=== PATIENT | female | born 1960 | race Caucasian/White ===

== ENCOUNTER → 2017-01-11 | Outpatient (CLI) | payer OTHER ==
[2017-01-11 14:38] VITALS: BP 136/88; PULSE 76; RESP 16; TEMP 97.9; BMI 46.6
--- NOTE | 2017-02-09 09:46 | P.HPBAR ---
Bariatric H&P - History & Physicial H&P Date: 01/11/17 History & Physicial: Visit/CC: band adj Patient initial contact: Initial weight: 167.376 kg Initial weight in pounds: 369.00 Height: 5 ft 5 in Initial BMI: 61.4 Last weight: Current weight: 127.091 kg Current weight in pounds: 280.00 Current BMI: 46.6 [place] body weight (based on NIH guidelines): 56.699 kg Excess body weight loss: 36.4% The patient is a 56 year-old F who presents for Bariatric Assessment. Patient presents for adjustment of her LAP-BAND. She's not been seen several years. The patient states she is hungry and has gained weight. Past Medical History History of Any Multi-Drug Resistant Organisms: None Reported Smoking Status: Former smoker Surgical - Exam Vital Signs Temp Pulse Resp BP 97.9 F 76 16 136/88 01/11/17 14:35 01/11/17 14:35 01/11/17 14:35 01/11/17 14:35 - General well developed, no distress - Eyes PERRL - ENT normal pinna - Neck no masses - Respiratory normal expansion - Cardiovascular Rhythm: regular - Abdomen Abdomen: soft, non tender Bariatric Assessment & Plan Plan: A shunt had her Fatimah adjusted. 0.7 mL was added to her band. She currently has 3 mL in the band. She was able to water without difficulty. Bariatric Checklist Checklist: Plan: Checklist: EGD: 1. Hiatal hernia: 2. H. Pylori: HgbA1c: Vitamin D: Smoking: Former smoker Primary care physician referral: Psychiatry clearance: Cardiology clearance: Sleep study: Diet journal: VTE risk score: VTE risk level: Rehab needs at discharge:
== END | disposition home or self-care (01) ==
LOC: BARWHC3 14:05
PROVIDERS: ATTEND Surgery
DX: Z48.815 Encounter for surgical aftercare following surgery on the digestive system (principal); Z98.84 Bariatric surgery status; Z87.891 Personal history of nicotine dependence
CPT/HCPCS: 99212

== ENCOUNTER → 2021-02-24 | Outpatient (CLI) | payer OTHER ==
[2021-02-24 14:45] VITALS: BP 150/84; PULSE 82; RESP 18; TEMP 97.8; BMI 44.6
--- NOTE | 2021-03-04 12:33 | P.HPBAR ---
Bariatric H&P - History & Physicial H&P Date: 02/24/21 History & Physicial: Visit/CC: lap band follow up Patient initial contact: Initial weight: 167.376 kg Initial weight in pounds: 369.00 Height: 5 ft 5 in Initial BMI: 61.4 Last weight: Current weight: 121.517 kg Current weight in pounds: 267.90 Current BMI: 44.6 [place] body weight (based on NIH guidelines): 56.699 kg Excess body weight loss: 41.4% The patient is a 60 year-old F who presents for Bariatric Assessment. Patient resents today for lab band follow. She's had complaints of epigastric pain and nausea. She also had some dysphagia. Past Medical History Past Medical History: Diabetes Mellitus, GERD/Reflux, Hypertension History of Any Multi-Drug Resistant Organisms: None Reported Past Surgical History: Bariatric Surgery, Tonsillectomy Additional Past Surgical History / Comment(s): PANNI - 2010. lap band - 2002. Past Anesthesia/Blood Transfusion Reactions: No Reported Reaction Past Psychological History: No Psychological Hx Reported Smoking Status: Never smoker Past Alcohol Use History: Occasional Past Drug Use History: None Reported Surgical - Exam Vital Signs Temp Pulse Resp BP 97.8 F 82 18 150/84 02/24/21 14:38 02/24/21 14:38 02/24/21 14:38 02/24/21 14:38 - General well developed, well nourished, no distress - Eyes PERRL - ENT normal pinna - Neck no masses - Respiratory normal expansion - Cardiovascular Rhythm: regular - Abdomen Abdomen: soft, non tender Bariatric Assessment & Plan Plan: Patient LAP-BAND was empty. She had 3 mL remove her band. She also skin for ultrasound and HIDA scan. Bariatric Checklist Checklist: Plan: Checklist: EGD: 1. Hiatal hernia: 2. H. Pylori: HgbA1c: Vitamin D: Smoking: Former smoker Primary care physician referral: PATRICIA Burnham ([place]) Psychiatry clearance: Cardiology clearance: Sleep study: Diet journal: VTE risk score: VTE risk level: Rehab needs at discharge:
== END ==
LOC: BARWHC3 14:15
PROVIDERS: ATTEND Surgery
DX: Z46.51 Encounter for fitting and adjustment of gastric lap band (principal); R11.0 Nausea; R10.13 Epigastric pain; E11.9 Type 2 diabetes mellitus without complications; I10 Essential (primary) hypertension; Z98.84 Bariatric surgery status
CPT/HCPCS: 99212

== ENCOUNTER → 2021-03-27 | Outpatient (CLI) | payer OTHER ==
--- NOTE | 2021-03-27 11:29 | NM ---
EXAMINATION TYPE: NM hepatobiliary w CCK DATE OF EXAM: 03/27/2021 COMPARISON: Gallbladder ultrasound dated 03/27/2021 HISTORY: R10.84 generalized abdominal pain TECHNIQUE: After the intravenous administration of 5.1 mCi Tc 99m Mebrofenin hepatobiliary scintigrap hy is performed. Immediate images post injection. FINDINGS: There is satisfactory initial accumulation of tracer by the liver. The gallbladder is visualized wit hin 12 minutes. The small bowel activity is noted on delayed imaging. At one hour CCK was administe red, patient was injected with 2.45 mcg of Kinevac, and gallbladder ejection fraction is calculated a t 83 %, in the normal range. Therefore there is no scintigraphic evidence of cystic or common bile d uct obstruction to suggest acute cholecystitis or gallbladder dyskinesia. IMPRESSION: Bladder ejection fraction 83% at the upper limit of normal. No evident cystic duct obstru ction. Short findings above.
--- NOTE | 2021-03-27 14:10 | US ---
EXAMINATION TYPE: US gallbladder DATE OF EXAM: 03/27/2021 COMPARISON: NONE CLINICAL HISTORY: R10.84 generalized abdominal pain. EXAM MEASUREMENTS: Liver Length: 19 cm Gallbladder Wall: 0.3 cm CBD: 0.2 cm Right Kidney: 10.6 x 5.2 x 5.7 cm Technical difficult study due to patient size Pancreas: Completely obscured by bowel gas Liver: Diffuse fatty infiltration of the liver. No discrete hepatic mass or intrahepatic biliary dil atation is seen. The liver is partially obscured. Gallbladder: No gallstones, sludge, or pericholecystic fluid. Gallbladder wall measures 2.8 mm, with in normal limits. Evidence for sonographic Jaffe's sign: No CBD: 2.8 mm, within normal limits. Right Kidney: wnl IMPRESSION: 1. Hepatomegaly and hepatic steatosis. The liver is not entirely visualized. The study is limited due to patient's large body habitus. 2. The pancreas is completely obscured by bowel gas. 3. No gallstones, sludge, or pericholecystic fluid. No gallbladder wall thickening. Common duct is wi thin normal limits. 4. No renal calculi or hydronephrosis of the right kidney. 5. No ascites in the right upper abdomen.
== END | disposition home or self-care (01) ==
LOC: RADUSWWP 07:04
PROVIDERS: ATTEND Surgery
DX: K76.0 Fatty (change of) liver, not elsewhere classified (principal); R16.0 Hepatomegaly, not elsewhere classified
CPT/HCPCS: 76705; 78227; A9537

== ENCOUNTER 2021-04-25 07:03 | Day surgery (SDC) | payer OTHER ==
[2021-04-23 11:43] VITALS: BMI 46.5
[~2021-04-25 07:03] MED LIST: LACTATED RINGERS 1,000 ML IV SCH
[2021-04-25 07:43] VITALS: RESP 16; TEMP 97.5
[2021-04-25 07:55] LABS: Glucose,Whole Blood 159 mg/dL (75-99)
[2021-04-25] MEDS ORDERED: LIDOCAINE 1% INJ 10MG/ML (20 ML MDV) ONE (08:19)
[2021-04-25] MEDS ORDERED: PROPOFOL 10 MG/ML 20 ML VIAL IV ONE (08:19)
--- NOTE | 2021-04-25 08:23 | P.GSHP ---
History of Present Illness H&P Date: 04/25/21 Chief Complaint: GERD Is a 60-year-old female with history of GERD. Patient has safer EGD. She appears history of Nuno's her LAP-BAND procedure Past Medical History Past Medical History: Diabetes Mellitus, GERD/Reflux, Hyperlipidemia, Hypertension History of Any Multi-Drug Resistant Organisms: None Reported Past Surgical History: Bariatric Surgery, Tonsillectomy Additional Past Surgical History / Comment(s): PANNI - 2010. lap band - 2002. Past Anesthesia/Blood Transfusion Reactions: No Reported Reaction Smoking Status: Never smoker - Past Family History Mother Family Medical History: No Reported History Medications and Allergies Home Medications Medication Instructions Recorded Confirmed Type Glimepiride [Amaryl] 2 mg PO [id number] 02/24/21 04/25/21 History Lisinopril [Prinivil] 10 mg PO DAILY 02/24/21 04/25/21 History Omeprazole 20 mg PO DAILY 02/24/21 04/25/21 History Rosuvastatin Calcium [Ezallor 20 mg PO DAILY 02/24/21 04/25/21 History Sprinkle] metFORMIN HCL ER [Glucophage Xr] 500 mg PO BID 02/24/21 04/25/21 History Allergies Allergy/AdvReac Type Severity Reaction Status Date / Time No Known Allergies Allergy Verified 04/25/21 07:25 Surgical - Exam Vital Signs Temp Pulse Resp BP Pulse Ox 97.5 F L 79 16 173/76 97 04/25/21 07:32 04/25/21 07:32 04/25/21 07:32 04/25/21 07:32 04/25/21 07:32 - General well developed, well nourished, no distress - Eyes PERRL - ENT normal pinna - Neck no masses - Respiratory normal expansion - Cardiovascular Rhythm: regular - Abdomen Abdomen: soft, non tender Results - Labs Abnormal Lab Results - Last 24 Hours (Table) 04/25/21 Range/Units 07:42 POC Glucose (mg/dL) 159 H (75-99) mg/dL Assessment and Plan Assessment: GERD. We'll perform EGD.
--- NOTE | 2021-04-25 08:38 | P.OP ---
Date of Procedure: 04/25/21 Preoperative Diagnosis: Reflux Postoperative Diagnosis: Gastroparesis Procedure(s) Performed: EGD Anesthesia: MAC Surgeon: Tae Mccoy Pathology: other (Antrum) Condition: stable Disposition: PACU Description of Procedure: Patient's placed on the endoscopy table in the lateral position. She received IV sedation. The gastroscope placed oropharynx passed in the esophagus into the stomach. Within the stomach was a large amount of retained food. The scope was then placed through the pylorus. There is no evidence of any a L obstruction. A biopsy the antrum performed. Scope was retroflexed there was a large amount of retained food in. The GE junction was partially visualized however this was obstructed due to retained food. No significant inflamed. Changes to be seen around the patient LAP-BAND device. The distal esophagus appeared normal. The proximal esophagus. Normal the scope was brought patient.
[2021-04-25 08:50] VITALS: BP 132/87; PULSE 76
== END 2021-04-25 09:04 | disposition home or self-care (01) ==
LOC: ORWHC2ENDO 07:03
PROVIDERS: ATTEND Surgery
DX: K31.84 Gastroparesis (principal); E11.43 Type 2 diabetes mellitus with diabetic autonomic (poly)neuropathy; E78.5 Hyperlipidemia, unspecified; I10 Essential (primary) hypertension; K29.50 Unspecified chronic gastritis without bleeding; Z79.84 Long term (current) use of oral hypoglycemic drugs
CPT/HCPCS: 88305; 43239; J2001; J2704

== ENCOUNTER → 2021-04-28 | Outpatient (CLI) | payer OTHER ==
[2021-04-28 13:49] VITALS: BP 153/90; PULSE 88; RESP 18; TEMP 97.6; BMI 47.2
--- NOTE | 2021-05-14 12:30 | P.HPBAR ---
Bariatric H&P - History & Physicial H&P Date: 04/28/21 History & Physicial: Visit/CC: follow up / lap band Patient initial contact: Initial weight: 167.376 kg Initial weight in pounds: 369.00 Height: 5 ft 5 in Initial BMI: 61.4 Last weight: Current weight: 128.82 kg Current weight in pounds: 284.00 Current BMI: 47.2 [place] body weight (based on NIH guidelines): 56.699 kg Excess body weight loss: 34.8% The patient is a 60 year-old F who presents for Bariatric Assessment. She presents today for laparoscopic and follow-up. She is requesting a fill repair. She's not seen several years. Past Medical History Past Medical History: Diabetes Mellitus, GERD/Reflux, Hyperlipidemia, Hypertension History of Any Multi-Drug Resistant Organisms: None Reported Past Surgical History: Bariatric Surgery, Tonsillectomy Additional Past Surgical History / Comment(s): PANNI - 2010. lap band - 2002. Past Anesthesia/Blood Transfusion Reactions: No Reported Reaction Smoking Status: Never smoker - Past Family History Mother Family Medical History: No Reported History Surgical - Exam Vital Signs Temp Pulse Resp BP 97.6 F 88 18 153/90 04/28/21 13:45 04/28/21 13:45 04/28/21 13:45 04/28/21 13:45 - General well developed, well nourished, no distress - Abdomen Abdomen: soft, non tender Bariatric Assessment & Plan Plan: Patient's lap band was adjusted. She had 2 mL added to her band. She'll follow-up in 4 weeks. Bariatric Checklist Checklist: Plan: Checklist: EGD: 1. Hiatal hernia: 2. H. Pylori: HgbA1c: Vitamin D: Smoking: Former smoker Primary care physician referral: PATRICIA Burnham ([place]) Psychiatry clearance: Cardiology clearance: Sleep study: Diet journal: VTE risk score: VTE risk level: Rehab needs at discharge:
== END | disposition home or self-care (01) ==
LOC: BARWHC3 13:32
PROVIDERS: ATTEND Surgery
DX: Z09 Encounter for follow-up examination after completed treatment for conditions other than malignant neoplasm (principal)
CPT/HCPCS: 99212

== ENCOUNTER → 2021-06-16 | Outpatient (CLI) | payer OTHER ==
[2021-06-16 13:21] VITALS: BP 149/102; PULSE 84; RESP 18; TEMP 98; BMI 46.7
--- NOTE | 2021-06-16 13:40 | P.HPBAR ---
Bariatric H&P - History & Physicial H&P Date: 06/16/21 History & Physicial: Visit/CC: follow up / lap band Patient initial contact: Initial weight: 167.376 kg Initial weight in pounds: 369.00 Height: 5 ft 5 in Initial BMI: 61.4 Last weight: Current weight: 127.459 kg Current weight in pounds: 281.00 Current BMI: 46.7 [place] body weight (based on NIH guidelines): 56.699 kg Excess body weight loss: 36.0% The patient is a 60 year-old F who presents for Bariatric Assessment. Patient p resents today for bariatric follow-up. She is requesting a fill her band. Past Medical History Past Medical History: Diabetes Mellitus, GERD/Reflux, Hyperlipidemia, Hypertension History of Any Multi-Drug Resistant Organisms: None Reported Past Surgical History: Bariatric Surgery, Tonsillectomy Additional Past Surgical History / Comment(s): PANNI - 2010. lap band - 2002. Past Anesthesia/Blood Transfusion Reactions: No Reported Reaction Past Psychological History: No Psychological Hx Reported Smoking Status: Never smoker Past Alcohol Use History: Occasional Past Drug Use History: None Reported - Past Family History Mother Family Medical History: No Reported History Surgical - Exam Vital Signs Temp Pulse Resp BP 98.0 F 84 18 149/102 06/16/21 13:18 06/16/21 13:18 06/16/21 13:18 06/16/21 13:18 - General well developed, well nourished, no distress - Eyes PERRL - ENT normal pinna - Neck no masses - Respiratory normal expansion - Cardiovascular Rhythm: regular - Abdomen Abdomen: soft, non tender Bariatric Assessment & Plan Plan: Morbid obesity. Patient's pain was just protrudes 0.5 mL added. She currently has 2 mL in the band. She'll follow-up in 4 weeks. Bariatric Checklist Checklist: Plan: Checklist: EGD: 1. Hiatal hernia: 2. H. Pylori: HgbA1c: Vitamin D: Smoking: Former smoker Primary care physician referral: PATRICIA Burnham ([place]) Psychiatry clearance: Cardiology clearance: Sleep study: Diet journal: VTE risk score: VTE risk level: Rehab needs at discharge:
== END ==
LOC: BARWHC3 13:06
PROVIDERS: ATTEND Surgery
DX: E66.01 Morbid (severe) obesity due to excess calories (principal); E11.9 Type 2 diabetes mellitus without complications; I10 Essential (primary) hypertension; K21.9 Gastro-esophageal reflux disease without esophagitis; E78.5 Hyperlipidemia, unspecified; Z68.42 Body mass index [BMI] 45.0-49.9, adult; Z46.51 Encounter for fitting and adjustment of gastric lap band; Z87.891 Personal history of nicotine dependence; Z79.84 Long term (current) use of oral hypoglycemic drugs; Z79.899 Other long term (current) drug therapy
CPT/HCPCS: 99212

== ENCOUNTER → 2021-07-21 | Outpatient (CLI) | payer OTHER ==
[2021-07-21 14:29] VITALS: BP 177/76; PULSE 76; TEMP 98.1; BMI 44.7
--- NOTE | 2021-07-31 19:54 | P.HPBAR ---
Bariatric H&P - History & Physicial H&P Date: 07/21/21 History & Physicial: Visit/CC: lap band follow up Patient initial contact: Initial weight: 167.376 kg Initial weight in pounds: 369.00 Height: 5 ft 5 in Initial BMI: 61.4 Last weight: Current weight: 122.016 kg Current weight in pounds: 269.00 Current BMI: 44.7 [place] body weight (based on NIH guidelines): 56.699 kg Excess body weight loss: 40.9% The patient is a 60 year-old F who presents for Bariatric Assessment. Patient presents today for bariatric follow-up. She is requesting her LAP-BAND to be empty. She has some complaints of dysphagia Past Medical History Past Medical History: Diabetes Mellitus, GERD/Reflux, Hyperlipidemia, Hypertension History of Any Multi-Drug Resistant Organisms: None Reported Past Surgical History: Bariatric Surgery, Tonsillectomy Additional Past Surgical History / Comment(s): PANNI - 2010. lap band - 2002. Past Anesthesia/Blood Transfusion Reactions: No Reported Reaction Past Psychological History: No Psychological Hx Reported Smoking Status: Never smoker Past Alcohol Use History: Occasional Past Drug Use History: None Reported - Past Family History Mother Family Medical History: No Reported History Surgical - Exam Vital Signs Temp Pulse BP 98.1 F 76 177/76 07/21/21 14:21 07/21/21 14:21 07/21/21 14:21 - General well developed, well nourished, no distress - Eyes PERRL - ENT normal pinna - Neck no masses - Respiratory normal expansion - Cardiovascular Rhythm: regular - Abdomen Abdomen: soft, non tender Bariatric Assessment & Plan Plan: Patient LAP-BAND was adjusted. She had 0.5 mL remove the band. She currently has 2 mL in the band. She'll follow-up in 4 weeks Bariatric Checklist Checklist: Plan: Checklist: EGD: 1. Hiatal hernia: 2. H. Pylori: HgbA1c: Vitamin D: Smoking: Former smoker Primary care physician referral: PATRICIA Burnham ([place]) Psychiatry clearance: Cardiology clearance: Sleep study: Diet journal: VTE risk score: VTE risk level: Rehab needs at discharge:
== END ==
LOC: BARWHC3 13:31
PROVIDERS: ATTEND Surgery
DX: Z46.51 Encounter for fitting and adjustment of gastric lap band (principal); R13.10 Dysphagia, unspecified; E11.9 Type 2 diabetes mellitus without complications; E78.5 Hyperlipidemia, unspecified; I10 Essential (primary) hypertension; Z98.84 Bariatric surgery status; Z87.891 Personal history of nicotine dependence
CPT/HCPCS: 99212